=== PATIENT | male | born 1970 | race Hispanic/Latino ===

== ENCOUNTER 2017-01-03 06:59 | Emergency (ER) | payer OTHER ==
[2017-01-03 07:14] VITALS: BMI 34.9
--- NOTE | 2017-01-03 07:26 | ED PDOC ---
Arrival/HPI - General Time Seen by Provider: 01/03/17 07:21 Historian: Patient - History of Present Illness Narrative History of Present Illness (Text): 01/03/17 07:21 Atif Torres is a 46 year old male who presents to the emergency department complaining of rash to bilateral arms for a few days. Patient notes that he works in [employer]. Patient states that he has used calamine lotion and anti- itch spray to little relief. Patient denies any fevers, chills, urinary symptoms , or any other complaints at this time. Time/Duration: < week Symptom Onset: Gradual Symptom Course: Unchanged Severity Level: Moderate Activities at Onset: Light Context: Work Past Medical History - Provider Review Nursing Documentation Reviewed: Yes - Infectious Disease Hx of Infectious Diseases: None - Past Medical History Past Medical History: No Previous - Psychiatric Hx Depression: No Hx Emotional Abuse: No Hx Physical Abuse: No Hx Substance Use: No - Surgical History Hx Orthopedic Surgery: Yes (LEFT KNEE) - Anesthesia Hx Anesthesia: Yes Hx Anesthesia Reactions: No Hx Malignant Hyperthermia: No - Suicidal Assessment Feels Threatened In Home Enviroment: No Family/Social History - Physician Review Nursing Documentation Reviewed: Yes Family/Social History: No Known Family HX Smoking Status: Never Smoked Hx Alcohol Use: Yes Frequency of alcohol use: Socially Hx Substance Use: No Allergies/Home Meds Allergies/Adverse Reactions: Allergies No Known Allergies Allergy (Verified 03/08/13 18:59) Review of Systems - Physician Review All systems were reviewed & negative as marked: Yes - Review of Systems Constitutional: absent: Fevers, Night Sweats Eyes: absent: Vision Changes ENT: absent: Hearing Changes Respiratory: absent: SOB, Cough Cardiovascular: absent: Chest Pain Gastrointestinal: absent: Abdominal Pain Genitourinary Male: absent: Dysuria Musculoskeletal: absent: Arthralgias Skin: Rash Neurological: absent: Headache, Dizziness Endocrine: absent: Diaphoresis, Polyuria Hemo/Lymphatic: absent: Adenopathy, Easy Bleeding Psychiatric: absent: Anxiety Physical Exam - Physical Exam Narrative Physical Exam (Text): Constitutional: No acute distress. Head: Normocephalic. Atraumatic. Eyes: PERRL. ENT: Moist mucous membranes. Neck: Supple. Cardiovascular: Regular rate. Chest: No tenderness. Respiratory: Clear to auscultation bilaterally. GI: Soft. Nontender. Nondistended. Back: No CVA tenderness. Musculoskeletal: No tenderness or swelling of extremities. Skin: Erythematous vesicular patches with small blisters to bilateral arms. No streaks of erythema. No discharge of pus. Neurologic: Alert, no focal deficit. Vital Signs Temp Pulse Resp BP Pulse Ox 01/03/17 06:59 97.8 F 65 16 120/85 96 Medical Decision Making ED Course and Treatment: 01/03/17 07:21 Impression: 46 year old male complaining of rashes to bilateral arms for a few days. Differential Diagnosis included but are not limited to: Contact Dermatitis Plan: -- Discharge Prior Visits: Notes and results from previous visits were reviewed. Patient last seen in the ED on 03/08/13 for insect bites to lower legs. Patient was discharged home. Progress Notes: - Scribe Statement The provider has reviewed the documentation as recorded by the Svetlana Saini Provider Scribe Attestation: All medical record entries made by the Itaibbrandon were at my direction and personally dictated by me. I have reviewed the chart and agree that the record accurately reflects my personal performance of the history, physical exam, medical decision making, and the department course for this patient. I have also personally directed, reviewed, and agree with the discharge instructions and disposition. Disposition/Present on Arrival - Present on Arrival Any Indicators Present on Arrival: No History of DVT/PE: No History of Uncontrolled Diabetes: No Urinary Catheter: No History of Decub. Ulcer: No History Surgical Site Infection Following: None - Disposition Have Diagnosis and Disposition been Completed?: Yes Diagnosis: Allergic contact dermatitis Disposition: HOME/ ROUTINE Disposition Time: 08:00 Patient Plan: Discharge Condition: STABLE Discharge Instructions (ExitCare): Contact Dermatitis (ED), Poison Barb (ED) Prescriptions: predniSONE [predniSONE Tab] 60 mg PO DAILY #29 tab Referrals: PCP,NO [Primary Care Provider] - Follow up with primary
[2017-01-03 07:41] VITALS: BP 120/85; PULSE 65; RESP 16; TEMP 97.8; O2SAT 96
== END 2017-01-03 08:00 | disposition home or self-care (01) ==
LOC: ED 06:59
DX: L23.9 Allergic contact dermatitis, unspecified cause (principal)

== ENCOUNTER 2017-02-25 06:48 | Emergency (ER) | payer OTHER ==
[2017-02-25 06:49] VITALS: BMI 34.9
[2017-02-25 07:20] VITALS: RESP 18; TEMP 97.7
--- NOTE | 2017-02-25 07:40 | ED PDOC ---
Arrival/HPI - General Chief Complaint: Abnormal Skin Integrity Time Seen by Provider: 02/25/17 07:07 Historian: Patient - History of Present Illness Narrative History of Present Illness (Text): 02/25/17 07:28 Atif Torres is a 47 year old male who presents to the emergency department complaining of worsening rash to bilateral arms for about 2 weeks. Patient states that he was carrying burlap bags at work when he developed an itch that worsened these past 2 weeks, especially over the weekend. Patient states that he used Peroxide and Bacitracin to clean the rash which brought some relief. Patient notes that he experiences some draining from his rash when changing his arm wraps. Patient states that he had a poison primo rash 2 months ago to his arms and chest area which resolved completely. Patient denies any fevers, chills , or any other complaints at this time. Time/Duration: < month Symptom Onset: Gradual Symptom Course: Worsening Activities at Onset: Light Context: Work Past Medical History - Provider Review Nursing Documentation Reviewed: Yes - Infectious Disease Hx of Infectious Diseases: None - Past Medical History Past Medical History: No Previous - Psychiatric Hx Depression: No Hx Emotional Abuse: No Hx Physical Abuse: No Hx Substance Use: No - Surgical History Hx Orthopedic Surgery: Yes (LEFT KNEE) - Anesthesia Hx Anesthesia: Yes Hx Anesthesia Reactions: No Hx Malignant Hyperthermia: No - Suicidal Assessment Feels Threatened In Home Enviroment: No Family/Social History - Physician Review Nursing Documentation Reviewed: Yes Family/Social History: No Known Family HX Smoking Status: Never Smoked Hx Alcohol Use: Yes Hx Substance Use: No Allergies/Home Meds Allergies/Adverse Reactions: Allergies No Known Allergies Allergy (Verified 03/08/13 18:59) Review of Systems - Physician Review All systems were reviewed & negative as marked: Yes - Review of Systems Constitutional: absent: Fevers, Night Sweats Eyes: absent: Vision Changes ENT: absent: Hearing Changes Respiratory: absent: SOB, Cough Cardiovascular: absent: Chest Pain Gastrointestinal: absent: Abdominal Pain Genitourinary Male: absent: Dysuria, Frequency Musculoskeletal: absent: Arthralgias, Back Pain Skin: Rash (to bilateral upper arms) Physical Exam - Physical Exam Narrative Physical Exam (Text): Head: Atraumatic. Normocephalic. Eyes: PERRL. EOMI. Conjunctivae are not pale. ENT: Mucous membranes are moist and intact. Oropharynx is clear and symmetric. Neck: Supple. Full ROM. No JVD. No lymphadenopathy. Cardiovascular: Regular rate. Regular rhythm. No murmurs, rubs, or gallops. Distal pulses are 2+ and symmetric. Pulmonary/Chest: No evidence of respiratory distress. Clear to auscultation bilaterally. No wheezing, rales or rhonchi. Abdominal: Soft and non-distended. There is no tenderness. No rebound, guarding, or rigidity. No organomegaly. Good bowel sounds. Back: No CVA tenderness. Extremities: No edema. No cyanosis. No clubbing. Full range of motion in all extremities. No calf tenderness. Skin: Skin is warm and dry. No petechiae. No purpura. Neurological: Alert, awake, and oriented to person, place, time, and situation. Normal speech. Psychiatric: Good eye contact. Normal interaction, affect, and behavior. Vital Signs Reviewed: Yes Vital Signs Temp Pulse Resp BP Pulse Ox 02/25/17 07:14 97.7 F 86 18 136/82 97 Temperature: Afebrile Blood Pressure: Normal Pulse: Regular Respiratory Rate: Normal Appearance: Positive for: Well-Appearing, Non-Toxic, Comfortable Pain Distress: None Mental Status: Positive for: Alert and Oriented X 3 Medical Decision Making ED Course and Treatment: 02/25/17 07:28 Impression: 47 year old male complaining of worsening rash to bilateral arms for 2 weeks Differential Diagnosis included but are not limited to: Contact Dermatitis vs. Cellulitis Plan: -- Bacitracin -- Discharge Prior Visits: Notes and results from previous visits were reviewed. Patient last seen in the ED on 01/03/17 for rash to bilateral arms for a few days. Patient was discharged home. Progress Notes: - Scribe Statement The provider has reviewed the documentation as recorded by the Svetlana Saini Provider Scribe Attestation: All medical record entries made by the Svetlana were at my direction and personally dictated by me. I have reviewed the chart and agree that the record accurately reflects my personal performance of the history, physical exam, medical decision making, and the department course for this patient. I have also personally directed, reviewed, and agree with the discharge instructions and disposition. Disposition/Present on Arrival - Present on Arrival History of DVT/PE: No History of Uncontrolled Diabetes: No Urinary Catheter: No History of Decub. Ulcer: No History Surgical Site Infection Following: None - Disposition Diagnosis: Dermatitis, Cellulitis Disposition: HOME/ ROUTINE Patient Problems: Current Active Problems Problem Status Onset Cellulitis Acute Dermatitis Acute Discharge Instructions (ExitCare): Cellulitis (ED), Dermatitis (ED) Additional Instructions: Avoid heavy lifting or direct pressure to affected areas. Use bacitracin ointment as directed. Take antibiotic as directed. For any blisters, any bleeding, any pus, any drainage, any swelling, any increase in redness, any fevers or chills, any persistent or worsening of symptoms, get rechecked. Have rash rechecked in 1-2 days. Please contact your doctor or call one of the physicians/clinics you have been referred to that are listed on the Patient Visit Information form that is included in your discharge packet. Bring any paperwork you were given at discharge with you along with any medications you are taking to your follow up visit. Our treatment cannot replace ongoing medical care by a primary care provider (PCP) outside of the emergency department. Thank you for allowing the [facility] team to be part of your care today. Prescriptions: Bacitracin Ointment [Bacitracin] 30 gm TOP DAILY #1 tube Cephalexin [cephalexin] 500 mg PO QID #28 cap Referrals: [facility] [Outside] - Follow up with primary [facility] [place] [facility] [place] - Follow up with primary Amarilys Monge MD [Staff Provider] - Follow up with primary Forms: [employer] (Togolese)
[2017-02-25 08:23] VITALS: BP 126/90; PULSE 76; O2SAT 96
== END 2017-02-25 08:18 | disposition home or self-care (01) ==
LOC: ED 06:48
DX: L30.9 Dermatitis, unspecified (principal); L03.114 Cellulitis of left upper limb; L03.113 Cellulitis of right upper limb

== ENCOUNTER 2017-03-02 18:58 | Emergency (ER) | payer OTHER ==
[2017-03-02 18:58] VITALS: BMI 34.9
[2017-03-02 19:03] VITALS: BP 132/90; PULSE 93; RESP 16; TEMP 97.6; O2SAT 99
--- NOTE | 2017-03-02 19:41 | ED PDOC ---
Arrival/HPI - General Chief Complaint: Abnormal Skin Integrity Time Seen by Provider: 03/02/17 19:13 Historian: Patient - History of Present Illness Narrative History of Present Illness (Text): 03/02/17 20:08 A 47 year old male, who denies any significant past medical history, presents to the emergency department for a diffuse erythematous rash, which began about two months ago after coming into contact with poison primo. The patient reports when he first came across the poison primo rash, the rash was located in the R forearm, he was treated with steroids, which alleviated his symptoms, but later on his symptoms returned. The patient states he was recently treated at [facility] for the rash to his forearm and began antibiotic treatment 5 days ago. The patient then developed a diffuse erythematous rash, which he states is not itchy or painful, he does admit to scratching the rash. He denies any fever, chills, sores in mouth, chest pain, troubled breathing, nausea, vomiting, or any other complaints at this time. Time/Duration: > month (x 2 months ago ) Symptom Onset: Sudden Symptom Course: Unchanged Activities at Onset: Other (poison primo ) Context: Other (came into contact with poison primo ) Past Medical History - Provider Review Nursing Documentation Reviewed: Yes - Infectious Disease Hx of Infectious Diseases: None - Past Medical History Past Medical History: No Previous - Psychiatric Hx Depression: No Hx Emotional Abuse: No Hx Physical Abuse: No Hx Substance Use: No - Surgical History Hx Orthopedic Surgery: Yes (LEFT KNEE) - Anesthesia Hx Anesthesia: Yes Hx Anesthesia Reactions: No Hx Malignant Hyperthermia: No - Suicidal Assessment Feels Threatened In Home Enviroment: No Family/Social History - Physician Review Nursing Documentation Reviewed: Yes Family/Social History: Unknown Family HX Smoking Status: Never Smoked Hx Alcohol Use: Yes Hx Substance Use: No Allergies/Home Meds Allergies/Adverse Reactions: Allergies No Known Allergies Allergy (Verified 03/02/17 19:04) Review of Systems - Physician Review All systems were reviewed & negative as marked: Yes - Review of Systems Constitutional: absent: Fevers, Other (chills ) Respiratory: absent: SOB Cardiovascular: absent: Chest Pain Gastrointestinal: absent: Nausea, Vomiting Skin: Rash (diffuse erythematous rash) Physical Exam Vital Signs Reviewed: Yes Vital Signs Temp Pulse Resp BP Pulse Ox 03/02/17 19:48 97.6 F 93 H 16 132/90 99 03/02/17 18:59 97.6 F 93 H 16 132/90 99 Temperature: Afebrile Blood Pressure: Normal Pulse: Tachycardic Respiratory Rate: Normal Appearance: Positive for: Well-Appearing, Non-Toxic, Comfortable Pain Distress: None Mental Status: Positive for: Alert and Oriented X 3 - Systems Exam Head: Present: Atraumatic, Normocephalic Pupils: Present: PERRL Extroacular Muscles: Present: EOMI Conjunctiva: Present: Normal Mouth: Present: Moist Mucous Membranes Neck: Present: Normal Range of Motion Respiratory/Chest: Present: Clear to Auscultation, Good Air Exchange. No: Respiratory Distress, Accessory Muscle Use Cardiovascular: Present: Regular Rate and Rhythm, Normal S1, S2. No: Murmurs Abdomen: Present: Normal Bowel Sounds. No: Tenderness, Distention, Peritoneal Signs Back: Present: Normal Inspection Upper Extremity: Present: Normal Inspection. No: Cyanosis, Edema Lower Extremity: Present: Normal Inspection. No: Edema Neurological: Present: GCS=15, CN II-XII Intact, Speech Normal Skin: Present: Warm, Dry, Rashes (large area of erythema to medial aspect of right forearm, same for the posterior aspect of both knees; diffuse erythematous nodular and papular rash everywhere sparing the palms, soles, and face; the skin is dry and peeling.) Psychiatric: Present: Alert, Oriented x 3, Normal Insight, Normal Concentration Medical Decision Making ED Course and Treatment: 03/02/17 20:17 Impression: A 47 year old male with a diffuse erythematous rash. Differential Diagnosis included but are not limited to: contact dermatitis vs allergic reaction, consider eczema Plan: -- Benadryl, Pepcid, Prednisone -- Reassess and disposition Progress Notes: Patient notified of likely diagnosis of allergic reaction. Advised to d/c kemaureen , for potential drug allergy. Otherwise instructed to follow up with cupola tender in 1-2 days without fail for further evaluation. Advised to take medication as prescribed. Return to the emergency room at any time for any new or worsening symptoms. Patient states he fully agrees with and understands discharge instructions. States that he agrees with the plan and disposition. Verbalized and repeated discharge instructions and plan. I have given the patient opportunity to ask any additional questions. - Medication Orders Current Medication Orders: Discontinued Medications Diphenhydramine HCl (Benadryl) 50 mg PO STAT STA Stop: 03/02/17 20:09 Last Admin: 03/02/17 20:20 Dose: 50 mg Famotidine (Pepcid) 40 mg PO STAT STA Stop: 03/02/17 20:09 Last Admin: 03/02/17 20:20 Dose: 40 mg Prednisone (Prednisone Tab) 60 mg PO STAT STA Stop: 03/02/17 20:09 Last Admin: 03/02/17 20:20 Dose: 60 mg - PA / CIVIL RIGHTS INVESTIGATOR / Resident Statement MD/DO has reviewed & agrees with the documentation as recorded. - Scribe Statement The provider has reviewed the documentation as recorded by the Svetlana Rouse Provider Scribe Attestation: All medical record entries made by the Scribe were at my direction and personally dictated by me. I have reviewed the chart and agree that the record accurately reflects my personal performance of the history, physical exam, medical decision making, and the department course for this patient. I have also personally directed, reviewed, and agree with the discharge instructions and disposition. Disposition/Present on Arrival - Present on Arrival Any Indicators Present on Arrival: No History of DVT/PE: No History of Uncontrolled Diabetes: No Urinary Catheter: No History of Decub. Ulcer: No History Surgical Site Infection Following: None - Disposition Have Diagnosis and Disposition been Completed?: Yes Diagnosis: Rash, Allergic reaction Disposition: HOME/ ROUTINE Disposition Time: 19:45 Patient Plan: Discharge Condition: STABLE Discharge Instructions (ExitCare): Acute Rash (ED), General Allergic Reaction ( ED) Print Language: NIGERIEN Additional Instructions: Thank you for letting us take care of you today. You were treated for rash, allergic reaction. The emergency medical care you received today was directed at your acute symptoms. If you were prescribed any medication, please fill it and take as directed. It may take several days for your symptoms to resolve. Return to the Emergency Department if your symptoms worsen, do not improve, or if you have any other problems. Please contact your doctor in 2 days for re-evaluation and follow up / or call one of the physicians/clinics you have been referred to that are listed on the Patient Visit Information form that is included in your discharge packet. Bring any paperwork you were given at discharge with you along with any medications you are taking to your follow up visit. Our treatment cannot replace ongoing medical care by a primary care provider (PCP) outside of the emergency department. Thank you for allowing the [facility] team to be part of your care today. Prescriptions: Cetirizine HCl [Zyrtec] 10 mg PO DAILY #30 capsule Famotidine [Pepcid] 40 mg PO DAILY #20 tablet Methylprednisolone [Medrol Dose Pack (21 tabs)] 4 mg PO DAILY #21 mg Referrals: Shelby Pugh, [Primary Care Provider] - Follow up with primary Amarilys Monge MD [Staff Provider] - Follow up with primary Forms: [employer] (Emirati), WORK NOTE
== END 2017-03-02 20:30 | disposition home or self-care (01) ==
LOC: ED 18:58
DX: R21 Rash and other nonspecific skin eruption (principal)

== ENCOUNTER 2018-03-21 08:14 | Emergency (ER) | payer OTHER ==
[2018-03-21 08:14] VITALS: BMI 34.9
[2018-03-21] MEDS ORDERED: DiphenhydrAMINE 50 mg/ml Inj IVP ONE (08:59)
--- NOTE | 2018-03-21 09:08 | ED PDOC ---
Arrival/HPI - General Chief Complaint: Abnormal Skin Integrity Time Seen by Provider: 03/21/18 08:25 Historian: Patient - History of Present Illness Narrative History of Present Illness (Text): 03/21/18 09:02 A 48 year old male, who denies any past medical history, presents to the emergency department for further evaluation of a facial rash. He reports that 3 days ago, a pallet strap sprung loose and hit the right sided on his face 3 days ago. He states that he was seen at [facility] and they prescribed him Clindamycin. He notes that he developed an erythematous, swelling over his face which goes posterior to the neck, more on the right side. It appears to be something allergic. He states that he is experiencing itchiness. The patient denies drug use or alcohol use Admits to occasional smoking. The patient denies fevers, ch ills, headache, dizziness, visual disturbance, eye involvement, sore throat, cough, chest pain, no dysphasia or dyspnea, shortness of breath, abdominal pain, nausea, vomiting, diarrhea, neck/back pain, urinary/bowel changes or any other complaint. Time/Duration: Other (3 Days) Symptom Onset: Sudden Symptom Course: Unchanged Activities at Onset: Rest, Light Context: Home Associated Symptoms (Text): 03/21/18 09:54 Hit with a pallet strap at work 3 days ago. He was seen at another hospital emergency department and prescribed clindamycin. He's developed an itchy erythematous raised swollen red rash. This does not appear to be related to the pallet strap. Appears to be allergic. No dyspnea or dysphagia. The rash has spread across his entire face including his forehead chin cheeks and into his neck bilaterally and posteriorly. Past Medical History - Provider Review Nursing Documentation Reviewed: Yes - Infectious Disease Hx of Infectious Diseases: None - Past Medical History Past Medical History: No Previous - Psychiatric Hx Depression: No Hx Emotional Abuse: No Hx Physical Abuse: No Hx Substance Use: No - Surgical History Hx Orthopedic Surgery: Yes (LEFT KNEE) - Anesthesia Hx Anesthesia: Yes Hx Anesthesia Reactions: No Hx Malignant Hyperthermia: No - Suicidal Assessment Feels Threatened In Home Enviroment: No Family/Social History - Physician Review Nursing Documentation Reviewed: Yes Family/Social History: No Known Family HX Smoking Status: Never Smoked Hx Alcohol Use: Yes Frequency of alcohol use: Socially Hx Substance Use: No Allergies/Home Meds Allergies/Adverse Reactions: Allergies No Known Allergies Allergy (Verified 03/21/18 08:31) Home Medications: Home Meds Medication Instructions Recorded Confirmed Clindamycin [Cleocin] 300 mg PO Q6 03/21/18 03/21/18 Review of Systems - Physician Review All systems were reviewed & negative as marked: Yes - Review of Systems Constitutional: absent: Fevers Eyes: absent: Vision Changes ENT: absent: Sore Throat Respiratory: absent: SOB, Cough Cardiovascular: absent: Chest Pain, CANO Gastrointestinal: absent: Abdominal Pain, Stool Changes, Diarrhea, Nausea, Vomiting Musculoskeletal: absent: Back Pain, Neck Pain Skin: Rash (Erythema and swelling over face and neck, right more than left.) Neurological: absent: Headache, Dizziness Physical Exam Vital Signs Reviewed: Yes Vital Signs Temp Pulse Resp BP Pulse Ox 03/21/18 08:23 98.1 F 82 18 129/89 97 Temperature: Afebrile Blood Pressure: Normal Pulse: Regular Respiratory Rate: Normal Appearance: Positive for: Well-Appearing, Non-Toxic, Uncomfortable Pain Distress: None Mental Status: Positive for: Alert and Oriented X 3 - Systems Exam Head: Present: Atraumatic, Normocephalic Pupils: Present: PERRL Extroacular Muscles: Present: EOMI Conjunctiva: Present: Normal Mouth: Present: Moist Mucous Membranes Pharnyx: No: ERYTHEMA, EXUDATE, TONSILS ENLARGED, Peritonsilar Swelling, Uvular Deviation, Muffled/Hoarse Voice, Strider, Soft Palate/Uvular Edema Neck: Present: Normal Range of Motion Respiratory/Chest: Present: Clear to Auscultation, Good Air Exchange. No: Respiratory Distress, Accessory Muscle Use Cardiovascular: Present: Regular Rate and Rhythm, Normal S1, S2. No: Murmurs Abdomen: No: Tenderness, Distention, Peritoneal Signs Back: Present: Normal Inspection Upper Extremity: Present: Normal Inspection. No: Cyanosis, Edema Lower Extremity: Present: Normal Inspection. No: Edema Neurological: Present: GCS=15, CN II-XII Intact, Speech Normal Skin: Present: Warm, Dry, Rashes (Skin raised, urticarial, erythematous rash over face, right side worse than left, extending to the neck, scalp, and both ears.) Psychiatric: Present: Alert, Oriented x 3, Normal Insight, Normal Concentration Medical Decision Making ED Course and Treatment: 03/21/18 09:12 Impression: A 48 year old male presents to the emergency department with a complaint of a rash that developed over his face, neck, and ears. Plan: -- Labs -- Benadryl and SOLU- Medrol -- Reassess and disposition Prior Visits: Notes and results from previous visits were reviewed. Progress Notes: 03/21/18 09:14 03/21/18 09:58 CBC is normal. This appears to be an allergic reaction as opposed to an infectious process. Patient will be treated with steroids and antihistamines. Instructed to follow-up with PMD. Follow up in ER as needed. - Lab Interpretations I have reviewed the lab results: Yes - Medication Orders Current Medication Orders: Diphenhydramine HCl (Benadryl) 50 mg IVP ONCE ONE Stop: 03/21/18 09:00 Methylprednisolone (Solu-Medrol) 125 mg IVP ONCE ONE Stop: 03/21/18 09:00 - Scribe Statement The provider has reviewed the documentation as recorded by the Svetlana Jordan Provider Scribe Attestation: All medical record entries made by the Scribe were at my direction and personally dictated by me. I have reviewed the chart and agree that the record accurately reflects my personal performance of the history, physical exam, medical decision making, and the department course for this patient. I have also personally directed, reviewed, and agree with the discharge instructions and disposition. Disposition/Present on Arrival - Present on Arrival Any Indicators Present on Arrival: No History of DVT/PE: No History of Uncontrolled Diabetes: No Urinary Catheter: No History of Decub. Ulcer: No History Surgical Site Infection Following: None - Disposition Have Diagnosis and Disposition been Completed?: Yes Diagnosis: Allergic reaction, Urticaria Disposition: HOME/ ROUTINE Disposition Time: 09:59 Patient Plan: Discharge Condition: GOOD Discharge Instructions (ExitCare): Hives (DC), Drug Allergy Additional Instructions: Ice. Benadryl [id number] as directed on bottle. Follow-up with PMD. Follow up in ER as needed. Prescriptions: predniSONE [predniSONE Tab] 20 mg PO DAILY #10 tab Forms: [employer] (Kinyarwanda), WORK NOTE
[2018-03-21 09:51] LABS: BASO # 0.02 K/mm3 (0.0-2.0); BASO % 0.3 % (0.0-3.0); EOS # 0.6 (0.0-0.7); EOS % 7.7 % (1.5-5.0); GRAN # 3.46 (1.4-6.5); GRAN % 43.9 % (50.0-68.0); MEAN CELL VOLUME 89.6 fl (80.0-105.0); MEAN CORPUSCULAR HEMOGLOBIN 31.2 pg (25.0-35.0); MEAN CORPUSCULAR HGB CONC 34.8 g/dl (31.0-37.0); MEAN PLATELET VOLUME 11.5 fl (7.0-11.0); MONO # 0.8 (0.1-0.6); MONO % 10.1 % (1.0-6.0); RBC 4.81 10^6/uL (3.5-6.1); RED CELL DISTRIBUTION WIDTH 12.9 % (11.5-14.5); WHITE BLOOD COUNT 7.9 10^3/ul (4.5-11.0)
[2018-03-21 10:02] VITALS: O2SAT 98
[2018-03-21 10:15] VITALS: BP 125/53; PULSE 72; RESP 19; TEMP 98.3
== END 2018-03-21 10:06 | disposition home or self-care (01) ==
LOC: ED 08:14
DX: L50.0 Allergic urticaria (principal)
CPT/HCPCS: 85025; 96374; 96375; 99284; J1200; J2930

== ENCOUNTER 2018-03-23 06:23 | Inpatient (IN) | payer OTHER ==
[2018-03-23 07:00] VITALS: BMI 36.6
[2018-03-23] MEDS ORDERED: Vancomycin 1gm in NS 250ml 1 GM/250 ML BAG IVPB STA (07:33)
[2018-03-23] MEDS ORDERED: Piperacillin/Tazobact 3.375 gm 100 ML IVPB STA (07:33)
[2018-03-23] MEDS ORDERED: Sodium Chloride 0.9% 1,000 ML IV STA (07:34)
--- NOTE | 2018-03-23 08:25 | ED PDOC ---
Arrival/HPI - General Chief Complaint: Allergic Reaction Time Seen by Provider: 03/23/18 07:18 Historian: Patient - History of Present Illness Narrative History of Present Illness (Text): 03/23/18 07:33 48 year old male, with no significant past medical history, presents to the Emergency department for evaluation of worsening generalized redness and rash to his neck since yesterday. As per patient, symptoms emerged 5 days ago, when a pallet strap sprung loose and hit the right side of his face. Patient noted erythematous swelling following the incident and was prescribed Clindamycin at [facility] with no improvement to symptoms. Patient reports presenting to [facility] with the mentioned presentations on 03/21/18 and received steroids for possible allergic reaction, without any improvement to symptoms. Patient observed worsening re dness and swelling associated with sweating last night prompting him to present to the Emergency department today for evaluation. Patient reports applying baby powder to alleviate the associated mild burning sensation but denies any other medications. Patient denies any allergies to food or medication and denies any significant changes to diet or clothing. Patient denies any other somatic complaints. Patient denies any fevers, chills, headache, dizziness, visual changes, sore throat, cough, chest pain, shortness of breath, abdominal pain, nausea, vomiting, diarrhea, neck/back pain, urinary/bowel changes or any other complaints. Time/Duration: < week Symptom Onset: Gradual Symptom Course: Unchanged Quality: Burning Activities at Onset: Light Context: Home Past Medical History - Provider Review Nursing Documentation Reviewed: Yes - Infectious Disease Hx of Infectious Diseases: None - Past Medical History Past Medical History: No Previous - Psychiatric Hx Depression: No Hx Emotional Abuse: No Hx Physical Abuse: No Hx Substance Use: No - Surgical History Hx Orthopedic Surgery: Yes (LEFT KNEE) - Anesthesia Hx Anesthesia: Yes Hx Anesthesia Reactions: No Hx Malignant Hyperthermia: No - Suicidal Assessment Feels Threatened In Home Enviroment: No Family/Social History - Physician Review Nursing Documentation Reviewed: Yes Family/Social History: No Known Family HX Smoking Status: Never Smoked Hx Alcohol Use: Yes Hx Substance Use: No Allergies/Home Meds Allergies/Adverse Reactions: Allergies No Known Allergies Allergy (Verified 03/23/18 11:28) Review of Systems - Physician Review All systems were reviewed & negative as marked: Yes - Review of Systems Constitutional: absent: Fevers Respiratory: absent: SOB, Cough Cardiovascular: absent: Chest Pain Gastrointestinal: absent: Abdominal Pain, Diarrhea, Nausea, Vomiting Genitourinary Male: absent: Hematuria, Urinary Output Changes Musculoskeletal: absent: Back Pain, Neck Pain Skin: Rash (generalized rash to neck) Neurological: absent: Headache, Dizziness Physical Exam Vital Signs Reviewed: Yes Vital Signs Temp Pulse Resp BP Pulse Ox 03/23/18 08:17 78 18 138/67 99 03/23/18 07:03 98.2 F 77 16 146/91 H 100 Temperature: Afebrile Blood Pressure: Normal Pulse: Regular Respiratory Rate: Normal Appearance: Positive for: Well-Appearing, Non-Toxic, Comfortable Pain Distress: None Mental Status: Positive for: Alert and Oriented X 3 - Systems Exam Head: Present: Atraumatic, Normocephalic Pupils: Present: PERRL Extroacular Muscles: Present: EOMI Conjunctiva: Present: Normal Mouth: Present: Moist Mucous Membranes Neck: Present: Normal Range of Motion, Other (diffused erythematous rash) Respiratory/Chest: Present: Clear to Auscultation, Good Air Exchange. No: Respiratory Distress, Accessory Muscle Use Cardiovascular: Present: Regular Rate and Rhythm, Normal S1, S2. No: Murmurs Abdomen: No: Tenderness, Distention, Peritoneal Signs Back: Present: Normal Inspection Upper Extremity: Present: Normal Inspection. No: Cyanosis, Edema Lower Extremity: Present: Normal Inspection. No: Edema Neurological: Present: GCS=15, CN II-XII Intact, Speech Normal Skin: Present: Warm, Dry, Rashes (diffused erythematous rash to neck), Normal Color Psychiatric: Present: Alert, Oriented x 3, Normal Insight, Normal Concentration Medical Decision Making ED Course and Treatment: 03/23/18 07:33 Impression: 48 year old male presents to the Emergency department complaining of diffused rash to his neck. Plan: -- Labs -- IV fluids -- Vancomycin -- Zosyn -- Blood Culture -- Reassess and disposition Prior Visits: Notes and results from previous visits were reviewed. Progress Notes: 03/23/18 08:[address] Parkinson, who is aware and agrees with Emergency department management plan, accepts patient admission to [facility] under her service. 03/25/18 17:38 failur eof outpt tx, - Medication Orders Current Medication Orders: Vancomycin HCl (Vancomycin 1gm) 1 gm in 250 mls @ 167 mls/hr IVPB STAT STA; Protocol Stop: 03/23/18 09:02 Sodium Chloride (Sodium Chloride 0.9%) 1,000 mls @ 999 mls/hr IV .Q1H1M STA Stop: 03/23/18 08:34 Last Admin: 03/23/18 08:05 Dose: 999 mls/hr eMAR Start Stop Document 03/23/18 08:05 LUCIAEsther (Rec: 03/23/18 08:05 MARTÍNEZ [id number]) Intravenous Solution Start Date 03/23/18 Start Time 08:00 End Date 03/23/18 End time 09:00 Total Infusion Time 60 Discontinued Medications Piperacillin Sod/Tazobactam Sod (Zosyn 3.375 In Ns 100ml) 100 mls @ 200 mls/hr IVPB STAT STA; Protocol Stop: 03/23/18 08:02 Last Admin: 03/23/18 08:06 Dose: 200 mls/hr eMAR Start Stop Document 03/23/18 08:06 MARTÍNEZ (Rec: 03/23/18 08:06 MARTÍNEZ [id number]) Intravenous Solution Start Date 03/23/18 Start Time 08:06 End Date 03/23/18 End time 08:36 Total Infusion Time 30 - Scribe Statement The provider has reviewed the documentation as recorded by the Scribe Cristobal Cortes. All medical record entries made by the Scribe were at my direction and personally dictated by me. I have reviewed the chart and agree that the record accurately reflects my personal performance of the history, physical exam, [facility] decision making, and the department course for this patient. I have also personally directed, reviewed, and agree with the discharge instructions and disposition. Disposition/Present on Arrival - Present on Arrival Any Indicators Present on Arrival: No History of DVT/PE: No History of Uncontrolled Diabetes: No Urinary Catheter: No History of Decub. Ulcer: No History Surgical Site Infection Following: None - Disposition Have Diagnosis and Disposition been Completed?: Yes Diagnosis: Dermatitis, Cellulitis Disposition: HOSPITALIZED Disposition Time: 10:00 Condition: IMPROVED
[2018-03-23 08:26] LABS: BASO # 0.04 K/mm3 (0.0-2.0); BASO % 0.3 % (0.0-3.0); EOS # 0.9 (0.0-0.7); EOS % 7.1 % (1.5-5.0); GRAN # 7.37 (1.4-6.5); GRAN % 56.7 % (50.0-68.0); HEMOGLOBIN 14.6 g/dL (14.0-18.0); LYMPH # 3.4 (1.2-3.4); MEAN CELL VOLUME 90.9 fl (80.0-105.0); MEAN CORPUSCULAR HEMOGLOBIN 30.7 pg (25.0-35.0); MEAN CORPUSCULAR HGB CONC 33.8 g/dl (31.0-37.0); MEAN PLATELET VOLUME 11.1 fl (7.0-11.0); MONO # 1.3 (0.1-0.6); MONO % 9.9 % (1.0-6.0); RBC 4.75 10^6/uL (3.5-6.1)
[2018-03-23 08:35] LABS: ALB/GLOB RATIO 1.3 (1.1-1.8); ALBUMIN 3.9 g/dL (3.0-4.8); ALT/SGPT 39 U/L (7-56); AST/SGOT 28 U/L (17-59); BLOOD UREA NITROGEN 14 mg/dL (7-21); CALCIUM 8.7 mg/dL (8.4-10.5); GFR NON-AFRICAN AMERICAN > 60
[2018-03-23 08:42] LABS: INR 0.9; PROTHROMBIN TIME 10.3 SECONDS (9.4-12.5)
[2018-03-23 08:46] LABS: PARTIAL THROMBOPLASTIN TIME 25.3 Seconds (25.1-36.5)
[2018-03-23] MEDS: Vancomycin 1gm in NS 250ml 1 GM/250 ML BAG IVPB SCH ×2 (11:16→21:09)
[2018-03-23] MEDS: Enoxaparin 40 mg Syringe SC SCH (11:17)
[2018-03-23] MEDS: Piperacillin/Tazobact 3.375 gm 100 ML IVPB SCH ×3 (11:17→23:34)
[2018-03-23] MEDS ORDERED: Influenza Vaccine 60 mcg/0.5 mL SYR (4YR UP) IM ONE (12:47)
[2018-03-23] MEDS ORDERED: Pneumococcal 23-Valent Vaccine IM ONE (12:47)
[2018-03-23] MEDS: MethylPREDNISolone 40 mg Vial IVP SCH ×2 (13:55→21:08)
--- NOTE | 2018-03-23 14:13 | CP.PCM.HP ---
<Marcin Peraza - Last Filed: 03/24/18 02:54> History of Present Illness - History of Present Illness History of Present Illness: Internal Medicine History and Physical (Hospitalist Service): Adelia PGY2 CC: Facial Cellulitis HPI: Mr. Torres is a 48 year old male with no significant past medical history who presented with facial and neck rash. Patient reports that one week ago while at work he was struck by a loose strap on the right side of his face. Afterwards, he was seen at [facility] where he was discharged from the ED with a 10 day course of Clindamycin. However, after taking this medication he noticed that his entire neck and upper chest were becoming increasingly red with periodic intense itching. The patient was seen in [place] [facility] [place] for what he believed to be an allergic reaction to Clindamycin and was discharged with a ten day course of prednisone. Patient continued to take his Clindamycin along with the prednisone but noted no improvement of his symptoms and decided that he needed to be evaluated further. He denies ever experiencing pain with either of his rashes. Patient denies ever having this in the past. He further denies any sick contacts, recent travel, fevers, chills, headache, changes in his vision, eye discharge/pain, rhinorrhea, sore throat, neck pain/stiffness, chest pain, palpitations, SOB, cough, wheezing, abdominal pain, N/V/D/C, changes in urine output, or any numbness/tingling/weakness of any extremity. 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 Allergies: NKDA Home Medications: Denies PMD: None Present on Admission - Present on Admission Any Indicators Present on Admission: No Past Patient History - Infectious Disease Hx of Infectious Diseases: None - Past Social History Smoking Status: Current Some Days Smoker - CARDIAC Hx Cardiac Disorders: No - PULMONARY Hx Respiratory Disorders: Yes (SMOKES CIGARETTES) - NEUROLOGICAL Hx Neurological Disorder: No - HEENT Hx HEENT Problems: No - RENAL Hx Chronic Kidney Disease: No - ENDOCRINE/METABOLIC Hx Endocrine Disorders: No - HEMATOLOGICAL/ONCOLOGICAL Hx Blood Disorders: No - INTEGUMENTARY Hx Dermatological Problems: Yes (REDDENED RASH TO RIGHT SIDE OF FACE.- CELLULITIS,RASH TO BACK OF KNEE ALSO) - MUSCULOSKELETAL/RHEUMATOLOGICAL Hx Falls: Yes - GASTROINTESTINAL Hx Gastrointestinal Disorders: No - GENITOURINARY/GYNECOLOGICAL Hx Genitourinary Disorders: No - PSYCHIATRIC Hx Substance Use: No - SURGICAL HISTORY Hx Surgeries: Yes Hx Orthopedic Surgery: Yes (LEFT KNEE) - ANESTHESIA Hx Anesthesia: Yes Hx Anesthesia Reactions: No Hx Malignant Hyperthermia: No Meds Allergies/Adverse Reactions: Allergies Allergy/AdvReac Type Severity Reaction Status Date / Time No Known Allergies Allergy Verified 03/23/18 11:28 Physical Exam - Constitutional Appears: Non-toxic, No Acute Distress - Neck Exam Neck exam: Positive for: Full Rom. Negative for: Lymphadenopathy, Meningismus, Tenderness, Thyromegaly - Respiratory Exam Respiratory Exam: Clear to Auscultation Bilateral, NORMAL BREATHING PATTERN. absent: Accessory Muscle Use, Chest Wall Tenderness, Decreased Breath Sounds, Prolonged Expiratory Phase, Rales, Rhonchi, Wheezes, Respiratory Distress, Stridor - Cardiovascular Exam Cardiovascular Exam: REGULAR RHYTHM, RRR, +S1, +S2. absent: Bradycardia, Tachycardia, Clicks, Diastolic murmur, Gallop, Irregular Rhythm, JVD, Rubs, +S4, Systolic Murmur - GI/Abdominal Exam GI & Abdominal Exam: Normal Bowel Sounds, Soft. absent: Tenderness - Extremities Exam Extremities exam: Negative for: calf tenderness - Neurological Exam Neurological exam: Alert, Oriented x3 - Psychiatric Exam Psychiatric exam: Normal Affect, Normal Mood Results - Vital Signs Recent Vital Signs: Last Vital Signs Temp 98.2 F 03/23/18 07:03 Pulse 80 03/23/18 10:00 Resp 18 03/23/18 12:48 BP 130/80 03/23/18 10:00 Pulse Ox 99 03/23/18 10:00 - Labs Result Diagrams: 03/23/18 08:00 03/23/18 08:00 Labs: Laboratory Results - last 24 hr 03/23/18 03/23/18 03/23/18 08:00 08:00 08:00 WBC 13.0 H D RBC 4.75 Hgb 14.6 Hct 43.2 MCV 90.9 MCH 30.7 MCHC 33.8 RDW 13.0 Plt Count 248 MPV 11.1 H Gran % 56.7 Lymph % (Auto) 26.0 King % (Auto) 9.9 H Eos % (Auto) 7.1 H Baso % (Auto) 0.3 Gran # 7.37 H Lymph # (Auto) 3.4 King # (Auto) 1.3 H Eos # (Auto) 0.9 H Baso # (Auto) 0.04 PT 10.3 INR 0.90 APTT 25.3 Sodium 138 Potassium 4.0 Chloride 102 Carbon Dioxide 28 Anion Gap 12 BUN 14 Creatinine 0.7 L Est GFR ( Amer) > 60 Est GFR (Non-Af Amer) > 60 Random Glucose 126 H Calcium 8.7 Total Bilirubin 0.6 AST 28 ALT 39 Alkaline Phosphatase 54 Total Protein 6.8 Albumin 3.9 Globulin 2.9 Albumin/Globulin Ratio 1.3 Assessment & Plan - Assessment and Plan (Free Text) Assessment: 48 year old male with no significant past medical history who presented with facial and neck rash. Patient reports that one week ago while at work he was struck by a loose strap on the right side of his face. Patient is currently admitted and being treated for failed outpatient antibiotic treatment of facial cellulitis. Plan: 1. Facial Cellulitis -CT Soft Tissue Neck and CT Maxillofacial showing findings consistent with facial cellulitis without drainable abscess -Blood cultures pending -IV Vancomycin and IV Zosyn for empiric coverage -IV Solu-Medrol 40mg IVPB Q8 -Tylenol PRN for fevers -Benadryl PRN for itching -ID consulted, all recommendations appreciated 2. Essential Hypertension -Lisinopril 5mg PO daily GI Prophylaxis: Protonix DVT Prophylaxis: Lovenox Diet: Regular Patient seen and case discussed with attending, Dr. Parkinson. - Date & Time Date: 03/23/18 Time: 14:13 Decision To Admit - Pt Status Changed To: Hospital Disposition Of: Observation - . Bed Request Type: Med/Surg <Maco Parkinson - Last Filed: 03/25/18 18:52> Results - Vital Signs Recent Vital Signs: Last Vital Signs Temp 98 F 03/25/18 07:39 Pulse 72 03/25/18 10:14 Resp 20 03/25/18 07:39 BP 125/82 03/25/18 10:14 Pulse Ox 94 L 03/25/18 07:39 - Labs Result Diagrams: 03/25/18 06:30 03/25/18 06:30 Labs: Laboratory Results - last 24 hr 03/24/18 03/25/18 03/25/18 05:00 06:30 06:30 WBC 15.2 H RBC 4.65 Hgb 14.5 Hct 41.7 L MCV 89.7 MCH 31.2 MCHC 34.8 RDW 12.8 Plt Count 297 MPV 10.8 Gran % 71.4 H Lymph % (Auto) 20.6 L King % (Auto) 8.0 H Eos % (Auto) 0.0 L Baso % (Auto) 0.0 Gran # 10.81 H Lymph # (Auto) 3.1 King # (Auto) 1.2 H Eos # (Auto) 0.0 Baso # (Auto) 0.00 Sodium 136 Potassium 4.3 Chloride 101 Carbon Dioxide 27 Anion Gap 12 BUN 17 Creatinine 0.7 L Est GFR ( Amer) > 60 Est GFR (Non-Af Amer) > 60 Random Glucose 152 H Calcium 8.7 Phosphorus 4.3 Magnesium 2.3 H Total Bilirubin 0.8 AST 25 ALT 44 Alkaline Phosphatase 55 Total Protein 6.8 Albumin 3.9 Globulin 2.8 Albumin/Globulin Ratio 1.4 HIV 1&2 Ag/Ab, 4th Gen Nonreactive Attending/Attestation - Attestation I have personally seen and examined this patient.: Yes I have fully participated in the care of the patient.: Yes I have reviewed all pertinent clinical information: Yes Notes (Text): 03/25/18 18:52 attending note; Patient seen and examined with resident. Patient is a 48 year old male with no past medical history who presented with facial and neck rash. Patient reports that one week ago while at work he was struck by a loose strap on the right side of his face. Patient was prescribed PO clindamycin, but then developed a bright red pruritic rash. Currently patient has redness on the right side of the face and the neck area. CT of the face and neck showed periorbital cellulitis but no drainable colection. Patient is started on IV vancomycin and Zosyn. ID evaluation requested. Continue IV Steroids for allergic reaction. Possible contact dermatitis. Monitor for clinical response closely. Upon discharge patient will [place] [facility] [place]
[2018-03-23] MEDS ORDERED: EnalaprilAT 1.25 mg/ml Inj IVP PRN (14:16)
--- NOTE | 2018-03-23 15:27 | CP.PCM.CON ---
History of Present Illness - History of Present Illness History of Present Illness: 48 year old male with PMH of left knee surgery came in to [facility] complaining of worsening erythema and pain around his anterior neck, which then spread to his right side of his face. It started about 4-5 days ago. He denies insect bites, d enies animal contacts, denies using any new chemical/soap, denies fever or chills, no nausea or vomiting, no chest pain, no SOB, no headache or dizziness, no abdominal pain, no diarrhea, no dysuria, no chest pain, no cough or rhinorrhea. He states that he was at [facility] a few days ago and was given Cli ndamycin and steroids without relief. He denies eye pain, no blurring of vision, no problems with moving his eyes, no pain in his mouth, no sore throat. Infectious Diseases consult is requested to further evaluate and manage. Review of Systems - Review of Systems All systems: reviewed and no additional remarkable complaints except (as per HPI) Past Patient History - Infectious Disease Hx of Infectious Diseases: None - Past Social History Smoking Status: Never Smoked - PSYCHIATRIC Hx Depression: No Hx Emotional Abuse: No Hx Physical Abuse: No Hx Substance Use: No - SURGICAL HISTORY Hx Orthopedic Surgery: Yes (LEFT KNEE) - ANESTHESIA Hx Anesthesia: Yes Hx Anesthesia Reactions: No Hx Malignant Hyperthermia: No Meds Allergies/Adverse Reactions: Allergies Allergy/AdvReac Type Severity Reaction Status Date / Time No Known Allergies Allergy Verified 03/23/18 11:28 - Medications Medications: Current Medications Acetaminophen (Tylenol 325mg Tab) 650 mg PO Q6H PRN PRN Reason: Fever >100.4 F Diphenhydramine HCl (Benadryl) 25 mg PO Q6 PRN PRN Reason: Itching / Pruritus Enoxaparin Sodium (Lovenox) 40 mg SC DAILY FLAKO; Protocol Vancomycin HCl (Vancomycin 1gm) 1 gm in 250 mls @ 167 mls/hr IVPB Q12H FLAKO; Protocol Piperacillin Sod/Tazobactam Sod (Zosyn 3.375 In Ns 100ml) 100 mls @ 200 mls/hr IVPB Q6 FLAKO; Protocol Stop: 03/23/18 18:29 Pantoprazole Sodium (Protonix Ec Tab) 40 mg PO 0600 FLAKO Physical Exam - Constitutional Appears: Chronically Ill - Head Exam Head Exam: NORMAL INSPECTION - ENT Exam Additional comments: right side of face and anterior neck with erythema, no open wounds, no swelling of periorbital area; poor dentition - Neck Exam Neck exam: Negative for: Meningismus - Respiratory Exam Respiratory Exam: Decreased Breath Sounds - Cardiovascular Exam Cardiovascular Exam: +S1, +S2 - GI/Abdominal Exam GI & Abdominal Exam: Soft. absent: Tenderness Results - Vital Signs Recent Vital Signs: Last Vital Signs Temp 98.2 F 03/23/18 07:03 Pulse 78 03/23/18 08:17 Resp 18 03/23/18 08:17 BP 138/67 03/23/18 08:17 Pulse Ox 99 03/23/18 08:17 - Labs Result Diagrams: 03/23/18 08:00 03/23/18 08:00 Labs: Laboratory Results - last 24 hr 03/23/18 03/23/18 03/23/18 08:00 08:00 08:00 WBC 13.0 H D RBC 4.75 Hgb 14.6 Hct 43.2 MCV 90.9 MCH 30.7 MCHC 33.8 RDW 13.0 Plt Count 248 MPV 11.1 H Gran % 56.7 Lymph % (Auto) 26.0 [place] % (Auto) 9.9 H Eos % (Auto) 7.1 H Baso % (Auto) 0.3 Gran # 7.37 H Lymph # (Auto) 3.4 [place] # (Auto) 1.3 H Eos # (Auto) 0.9 H Baso # (Auto) 0.04 PT 10.3 INR 0.90 APTT 25.3 Sodium 138 Potassium 4.0 Chloride 102 Carbon Dioxide 28 Anion Gap 12 BUN 14 Creatinine 0.7 L Est GFR ( Amer) > 60 Est GFR (Non-Af Amer) > 60 Random Glucose 126 H Calcium 8.7 Total Bilirubin 0.6 AST 28 ALT 39 Alkaline Phosphatase 54 Total Protein 6.8 Albumin 3.9 Globulin 2.9 Albumin/Globulin Ratio 1.3 Assessment & Plan - Assessment and Plan (Free Text) Plan: Assessment Neck and right facial rash, consider dermatitis, R/O cellulitis left knee surgery obesity with BMI 37 Plan Started Vancomycin and Zosyn pending blood cx, CT neck and maxillofacial area will check HIV test will monitor clinical response
--- NOTE | 2018-03-23 18:15 | CT ---
Date of service: 03/23/2018 PROCEDURE: CT NECK WITH CONTRAST HISTORY: Rule out cellulitis/abscess COMPARISON: None available. TECHNIQUE: CT of the neck with intravenous contrast. Coronal and sagittal reformats generated. Intravenous contrast dose: Radiation dose: DLP 437.93 mGy-cm This CT exam was performed using one or more of the following dose reduction techniques: Automated exposure control, adjustment of the mA and/or kV according to patient size, and/or use of iterative reconstruction technique. FINDINGS: NASOPHARYNX: Unremarkable. SUPRAHYOID NECK: Unremarkable oropharynx, oral cavity, parapharyngeal space and retropharyngeal space. INFRAHYOID NECK: Unremarkable larynx, hypopharynx, and supraglottic space. Vocal cords intact. MASS: No masses. No drainable subcutaneous fluid collections are identified. GLANDS: Parotid and submandibular glands unremarkable. Normal size thyroid gland, without nodule. LYMPH NODES: Multiple small nonspecific bilateral cervical lymph nodes are present. None of these lymph nodes appear pathologically enlarged CERVICAL SPINE: No fracture or focal lesion. VASCULAR STRUCTURES: Unremarkable. OTHER FINDINGS: There appears to be some very minor periorbital and right lateral periorbital, right pre maxillary infiltration changes and minimal overlying skin thickening. Findings may represent mild cellulitis. There also appears to be some minimal skin thickening right aspect of the neck. No drainable fluid or abscess collections are identified. IMPRESSION: There is mild right periorbital and right lateral as well as minor right pre maxillary infiltration changes suggesting a mild nonspecific cellulitis. No drainable fluid-abscess collection seen. There also minimal overlying skin thickening of the right facial soft tissues and right aspect of the neck
--- NOTE | 2018-03-23 18:18 | CT ---
Date of service: 03/23/2018 PROCEDURE: CT MAXILLOFACIAL BONES WITH CONTRAST HISTORY: Rule out cellulitis/abscess COMPARISON: Correlation made with concurrent CT scan neck TECHNIQUE: Contiguous axial CT images of the maxillofacial bones were obtained following administration of IV contrast. Coronal and sagittal reformats were generated. Intravenous contrast Dose: Infiltration changes right pre maxillary soft tissues as well. There is very slight Radiation dose: Total exam DLP = 874.40 mGy-cm. This CT exam was performed using one or more of the following dose reduction techniques: Automated exposure control, adjustment of the mA and/or kV according to patient size, and/or use of iterative reconstruction technique. FINDINGS: NASAL BONES: Unremarkable. ORBITS: There appears to be mild right periorbital and right lateral periorbital soft tissues. PARANASAL SINUSES/ MASTOIDS: The paranasal sinuses are well-developed. No fluid levels seen to suggest acute sinusitis. No significant mucoperiosteal inflammatory changes. There appears to be a chronic fracture deformity left lamina papyracea. MAXILLA: The maxilla intact.. There appears to be some minimal right periorbital and right lateral periorbital soft tissue swelling/infiltration extends inferiorly into the right pre maxillary soft tissues. Minimal overlying right facial skin thickening felt to be present well. Findings may represent cellulitis. No drainable fluid or abscess collections are identified. No evidence of postseptal orbital cellulitis. MANDIBLE/ TEMPOROMANDIBULAR JOINTS: Left TMJ incompletely visualized. Mandible appears intact. SKULL BASE: Unremarkable. TEMPORAL BONES: The mastoid air complexes incompletely visualized left middle ear canal also incompletely visualized. Visualized portions of the middle ear canals appear unremarkable. OTHER FINDINGS: Left frontal encephalomalacia changes are present likely posttraumatic in origin. IMPRESSION: Findings suggest mild right periorbital and right lateral periorbital cellulitis. Minor infiltration changes of the pre maxillary soft tissues with minimal overlying skin thickening. Findings may represent cellulitis. No evidence of drainable fluid or abscess collections are identified.. No evidence of postseptal orbital cellulitis. See above discussion for additional details and findings.
[2018-03-24] MEDS: MethylPREDNISolone 40 mg Vial IVP SCH ×3 (05:28→22:35)
[2018-03-24] MEDS: Pantoprazole 40 mg EC Tab PO SCH (05:28)
[2018-03-24] MEDS: Piperacillin/Tazobact 3.375 gm 100 ML IVPB SCH ×3 (05:28→17:32)
[2018-03-24 07:58] LABS: BASO # 0.01 K/mm3 (0.0-2.0); BASO % 0.1 % (0.0-3.0); GRAN # 10.7 (1.4-6.5); GRAN % 77.1 % (50.0-68.0); HEMOGLOBIN 14.7 g/dL (14.0-18.0); LYMPH # 2.5 (1.2-3.4); MEAN CELL VOLUME 89.9 fl (80.0-105.0); MEAN CORPUSCULAR HEMOGLOBIN 30.9 pg (25.0-35.0); MEAN CORPUSCULAR HGB CONC 34.4 g/dl (31.0-37.0); MONO # 0.7 (0.1-0.6); MONO % 4.8 % (1.0-6.0); RBC 4.75 10^6/uL (3.5-6.1); RED CELL DISTRIBUTION WIDTH 12.8 % (11.5-14.5); WHITE BLOOD COUNT 13.9 10^3/ul (4.5-11.0)
[2018-03-24 08:02] LABS: ALB/GLOB RATIO 1.3 (1.1-1.8); ALBUMIN 4.1 g/dL (3.0-4.8); ALT/SGPT 40 U/L (7-56); AST/SGOT 27 U/L (17-59); BLOOD UREA NITROGEN 15 mg/dL (7-21); CALCIUM 8.9 mg/dL (8.4-10.5); GFR NON-AFRICAN AMERICAN > 60
[2018-03-24 08:43] VITALS: RESP 20
[2018-03-24] MEDS: Vancomycin 1gm in NS 250ml 1 GM/250 ML BAG IVPB SCH ×2 (10:22→21:21)
[2018-03-24] MEDS: Enoxaparin 40 mg Syringe SC SCH (10:22)
--- NOTE | 2018-03-24 13:45 | CP.PCM.PN ---
<Susan Elmore - Last Filed: 03/24/18 13:40> Subjective - Date & Time of Evaluation Date of Evaluation: 03/24/18 Time of Evaluation: 07:20 - Subjective Subjective: PGY-1 Susan Elmore D.O. Medicine progress note for Dr. Parkinson's service: Patient was seen and examined this morning. Patient's rash is drying/crusting. He states that he is no longer itching. The pain has decreased. He is eating and sleeping well. Denies any acute complaints. Objective - Vital Signs/Intake and Output Vital Signs (last 24 hours): Temp Pulse Resp BP Pulse Ox 98.3 F 74 20 129/80 97 03/24/18 08:42 03/24/18 10:23 03/24/18 08:42 03/24/18 10:23 03/24/18 08:42 Intake and Output: 03/24/18 03/24/18 06:59 18:59 Intake Total 1520 240 Balance 1520 240 - Medications Medications: Current Medications Acetaminophen (Tylenol 325mg Tab) 650 mg PO Q6H PRN PRN Reason: pain or fever >100.4 Diphenhydramine HCl (Benadryl) 25 mg PO Q6 PRN PRN Reason: Itching / Pruritus Enoxaparin Sodium (Lovenox) 40 mg SC DAILY FLAKO; Protocol Last Admin: 03/24/18 10:22 Dose: 40 mg Vancomycin HCl (Vancomycin 1gm) 1 gm in 250 mls @ 167 mls/hr IVPB Q12H FLAKO; Protocol Last Admin: 03/24/18 10:22 Dose: 167 mls/hr Piperacillin Sod/Tazobactam Sod (Zosyn 3.375 In Ns 100ml) 100 mls @ 200 mls/hr IVPB Q6 FLAKO; Protocol Stop: 03/30/18 12:01 Last Admin: 03/24/18 12:03 Dose: 200 mls/hr Lisinopril (Zestril) 5 mg PO DAILY FLAKO Last Admin: 03/24/18 10:23 Dose: 5 mg Methylprednisolone (Solu-Medrol) 40 mg IVP Q8H FLAKO Last Admin: 03/24/18 12:03 Dose: 40 mg Pantoprazole Sodium (Protonix Ec Tab) 40 mg PO 0600 FLAKO Last Admin: 03/24/18 05:28 Dose: 40 mg - Labs Labs: 03/24/18 07:20 03/24/18 07:20 PT 10.3 SECONDS (9.4-12.5) 03/23/18 08:00 INR 0.90 03/23/18 08:00 APTT 25.3 Seconds (25.1-36.5) 03/23/18 08:00 - Constitutional Appears: Non-toxic, No Acute Distress - Head Exam Head Exam: ATRAUMATIC, NORMAL INSPECTION - Eye Exam Eye Exam: EOMI, Normal appearance, PERRL - ENT Exam ENT Exam: Mucous Membranes Moist, Normal Exam - Neck Exam Additional comments: entire neck erythematous, xerotic, hyperkeratotic extends superiorly onto R cheek no excoriations, discharge, or bleeding - Respiratory Exam Respiratory Exam: Clear to Ausculation Bilateral, NORMAL BREATHING PATTERN - Cardiovascular Exam Cardiovascular Exam: REGULAR RHYTHM, +S1, +S2 - GI/Abdominal Exam GI & Abdominal Exam: Soft, Normal Bowel Sounds. absent: Tenderness - Rectal Exam Rectal Exam: Deferred - Extremities Exam Extremities Exam: Full ROM, Normal Inspection - Back Exam Back Exam: NORMAL INSPECTION - Neurological Exam Neurological Exam: Alert, Awake, CN II-XII Intact, Normal Gait, Oriented x3 Neuro motor strength exam: Left Upper Extremity: 5, Right Upper Extremity: 5, Left Lower Extremity: 5, Right Lower Extremity: 5 - Psychiatric Exam Psychiatric exam: Normal Affect, Normal Mood - Skin Skin Exam: Dry, Erythema (neck, R cheek), Normal Color, Warm. absent: Abrasion, Cyanosis, Pallor, Petechiae, Vesicles Assessment and Plan - Assessment and Plan (Free Text) Assessment: Patient is a 48 yo male with no past medical history who presented with facial and neck rash. Patient reports that one week ago while at work he was struck by a loose strap on the right side of his face. Patient was prescribe PO clindamycin, but then developed a bright red pruritic rash. Plan: Dermatitis- suspect 2/2 abx use superimposed on cellulitis - CT Soft Tissue Neck and CT Maxillofacial: findings consistent with facial cellulitis without drainable abscess - Blood Cx no growth >24 hrs - Leukocytosis stable (13.9) - Afebrile - Vancomycin 1 g IV Q12H - Zosyn 3.375 mg IV Q6H - Solu-medrol 30 mg IV Q8H - Bendadryl 25 mg PO Q6H PRN - Tylenol 650 mg PO Q6H PRN - ID consulted (Monalisa)- vanc and zosyn pending blood Cx, f/u HIV HTN - Lisinopril 5 mg PO daily IVF: not indicated Diet: regular GI ppx: Protonix 40 mg PO daily VTE ppx: Lovenox 40 mg SC daily Code status: full code Case discussed with attending, Dr. Parkinson. <Maco Parkinson - Last Filed: 03/25/18 18:15> Objective - Vital Signs/Intake and Output Vital Signs (last 24 hours): Temp Pulse Resp BP Pulse Ox 98 F 72 20 125/82 94 L 03/25/18 07:39 03/25/18 10:14 03/25/18 07:39 03/25/18 10:14 03/25/18 07:39 Intake and Output: 03/25/18 03/25/18 06:59 18:59 Intake Total 360 Balance 360 - Labs Labs: 03/25/18 06:30 03/25/18 06:30 PT 10.3 SECONDS (9.4-12.5) 03/23/18 08:00 INR 0.90 03/23/18 08:00 APTT 25.3 Seconds (25.1-36.5) 03/23/18 08:00 Attending/Attestation - Attestation I have personally seen and examined this patient.: Yes I have fully participated in the care of the patient.: Yes I have reviewed all pertinent clinical information, including history, physical exam and plan: Yes Notes (Text): 03/25/18 18:13 attending note; Patient seen and examined with resident. Patient is a 48 year old male with no past medical history who presented with facial and neck rash. Patient reports that one week ago while at work he was st ruck by a loose strap on the right side of his face. Patient was prescribed PO clindamycin, but then developed a bright red pruritic rash. Currently patient has redness on the right side of the face and the neck area. CT of the face and neck showed periorbital cellulitis but no drainable colection. Patient is started on IV vancomycin and Zosyn. ID evaluation appreciated. Continue IV Steroids for allergic reaction. Possible contact dermatitis. Monitor for clinical response closely. Upon discharge patient will follow-up with [facility].
[2018-03-24 22:49] VITALS: O2SAT 94
[2018-03-25] MEDS: Piperacillin/Tazobact 3.375 gm 100 ML IVPB SCH ×3 (00:16→13:12)
--- NOTE | 2018-03-25 01:14 | PN ---
DATE: 03/24/2018 SUBJECTIVE: Patient is in bed in no acute distress, nontoxic. PHYSICAL EXAMINATION: VITAL SIGNS: The patient's temperature is 98, blood pressure is 120/80, respiratory rate of 18. HEENT: Unremarkable. NECK: Supple. LUNGS: Have decreased breath sounds. HEART: Normal S1, S2. ABDOMEN: Soft. LABORATORY EXAMINATION: Reveals a white count of 13,900, hemoglobin of 14, platelets of 276. Chemistries reveal a BUN of 15, creatinine of 0.6. Blood cultures are no growth. CAT scan of the neck reveals mild periorbital and right premaxillary infiltration with nonspecific cellulitis. No drainable abscess. ASSESSMENT AND PLAN: This is a 48-year-old male who was seen earlier this morning in room 573, bed 1, who states he is doing much better overall, admitted with cellulitis of the neck and face, on vancomycin and Zosyn, improving with negative blood cultures, the patient is afebrile, leukocytosis. The patient is on Solu-Medrol, vancomycin and Zosyn. We will continue to follow with you. ENT consultation pending. Review of orders reveals the antibiotics are active. We will follow with you. Sebastian Babcock MD
[2018-03-25] MEDS: Pantoprazole 40 mg EC Tab PO SCH (05:07)
[2018-03-25] MEDS: MethylPREDNISolone 40 mg Vial IVP SCH ×2 (05:48→13:12)
[2018-03-25 07:11] LABS: GRAN # 10.81 (1.4-6.5); GRAN % 71.4 % (50.0-68.0); HEMOGLOBIN 14.5 g/dL (14.0-18.0); LYMPH # 3.1 (1.2-3.4); LYMPH % 20.6 % (22.0-35.0); MEAN CELL VOLUME 89.7 fl (80.0-105.0); MEAN CORPUSCULAR HEMOGLOBIN 31.2 pg (25.0-35.0); MEAN CORPUSCULAR HGB CONC 34.8 g/dl (31.0-37.0); MEAN PLATELET VOLUME 10.8 fl (7.0-11.0); MONO # 1.2 (0.1-0.6); RBC 4.65 10^6/uL (3.5-6.1); RED CELL DISTRIBUTION WIDTH 12.8 % (11.5-14.5); WHITE BLOOD COUNT 15.2 10^3/ul (4.5-11.0)
[2018-03-25 07:19] LABS: ALB/GLOB RATIO 1.4 (1.1-1.8); ALBUMIN 3.9 g/dL (3.0-4.8); ALT/SGPT 44 U/L (7-56); AST/SGOT 25 U/L (17-59); BLOOD UREA NITROGEN 17 mg/dL (7-21); CALCIUM 8.7 mg/dL (8.4-10.5); GFR NON-AFRICAN AMERICAN > 60
[2018-03-25 07:39] VITALS: TEMP 98
--- NOTE | 2018-03-25 08:47 | CP.PCM.DIS ---
<Susan Elmore - Last Filed: 03/25/18 14:23> Provider - Provider Date of Admission: 03/23/18 08:49 Attending physician: Maco Parkinson MD Primary care physician: [facility] Consults: ID Time Spent in preparation of Discharge (in minutes): 45 Diagnosis - Discharge Diagnosis (1) Dermatitis Status: Acute Priority: High (2) HTN (hypertension) Status: Chronic Priority: Medium Hospital Course - Lab Results Lab Results: Micro Results 03/23/18 08:00 Blood Blood Culture - Preliminary NO GROWTH AFTER 48 HOURS 03/23/18 08:00 Blood Blood Culture - Preliminary NO GROWTH AFTER 48 HOURS Most Recent Lab Values WBC 15.2 10^3/ul (4.5-11.0) H 03/25/18 06:30 RBC 4.65 10^6/uL (3.5-6.1) 03/25/18 06:30 Hgb 14.5 g/dL (14.0-18.0) 03/25/18 06:30 Hct 41.7 % (42.0-52.0) L 03/25/18 06:30 MCV 89.7 fl (80.0-105.0) 03/25/18 06:30 MCH 31.2 pg (25.0-35.0) 03/25/18 06:30 MCHC 34.8 g/dl (31.0-37.0) 03/25/18 06:30 RDW 12.8 % (11.5-14.5) 03/25/18 06:30 Plt Count 297 10^3/uL (120.0-450.0) 03/25/18 06:30 MPV 10.8 fl (7.0-11.0) 03/25/18 06:30 Gran % 71.4 % (50.0-68.0) H 03/25/18 06:30 Lymph % (Auto) 20.6 % (22.0-35.0) L 03/25/18 06:30 Falls % (Auto) 8.0 % (1.0-6.0) H 03/25/18 06:30 Eos % (Auto) 0.0 % (1.5-5.0) L 03/25/18 06:30 Baso % (Auto) 0.0 % (0.0-3.0) 03/25/18 06:30 Gran # 10.81 (1.4-6.5) H 03/25/18 06:30 Lymph # (Auto) 3.1 (1.2-3.4) 03/25/18 06:30 Falls # (Auto) 1.2 (0.1-0.6) H 03/25/18 06:30 Eos # (Auto) 0.0 (0.0-0.7) 03/25/18 06:30 Baso # (Auto) 0.00 K/mm3 (0.0-2.0) 03/25/18 06:30 PT 10.3 SECONDS (9.4-12.5) 03/23/18 08:00 INR 0.90 03/23/18 08:00 APTT 25.3 Seconds (25.1-36.5) 03/23/18 08:00 Sodium 136 mmol/L (132-148) 03/25/18 06:30 Potassium 4.3 mmol/L (3.6-5.0) 03/25/18 06:30 Chloride 101 mmol/L (98-107) 03/25/18 06:30 Carbon Dioxide 27 mmol/L (21-33) 03/25/18 06:30 Anion Gap 12 (10-20) 03/25/18 06:30 BUN 17 mg/dL (7-21) 03/25/18 06:30 Creatinine 0.7 mg/dl (0.8-1.5) L 03/25/18 06:30 Est GFR ( Amer) > 60 03/25/18 06:30 Est GFR (Non-Af Amer) > 60 03/25/18 06:30 Random Glucose 152 mg/dL (70-110) H 03/25/18 06:30 Calcium 8.7 mg/dL (8.4-10.5) 03/25/18 06:30 Phosphorus 4.3 mg/dL (2.5-4.5) 03/25/18 06:30 Magnesium 2.3 mg/dL (1.7-2.2) H 03/25/18 06:30 Total Bilirubin 0.8 mg/dL (0.2-1.3) 03/25/18 06:30 AST 25 U/L (17-59) 03/25/18 06:30 ALT 44 U/L (7-56) 03/25/18 06:30 Alkaline Phosphatase 55 U/L (38-126) 03/25/18 06:30 Total Protein 6.8 g/dL (5.8-8.3) 03/25/18 06:30 Albumin 3.9 g/dL (3.0-4.8) 03/25/18 06:30 Globulin 2.8 gm/dL 03/25/18 06:30 Albumin/Globulin Ratio 1.4 (1.1-1.8) 03/25/18 06:30 HIV 1&2 Ag/Ab, 4th Gen Nonreactive (Nonreactive) 03/24/18 05:00 - Hospital Course Hospital Course: Atif Torres is a 48 year old male with no significant past medical history who presented with facial and neck rash. Patient reports that one week ago while at work he was struck by a loose strap on the right side of his face. Afterwards, he was seen at [facility] where he was discharged from the ED with a 10 day course of Clindamycin. However, after taking this medication he noticed that his entire neck and upper chest were becoming increasingly red with periodic intense itching. The patient was seen in the [facility] ED for what he believed to be an allergic reaction to Clindamycin and was discharged with a ten day course of prednisone. Patient continued to take his Clindamycin along with the prednisone but noted no improvement of his symptoms and decided that he needed to be evaluated further. He denies ever experiencing pain with either of his rashes. Patient denies ever having this in the past. Patient was treated with IV steroids and abx, vancomycin and zosyn. ID was consulted. He was also given Benadryl as needed for pruritis. Patients rash on neck and R cheek began to dry up by day 2. The pain and itching subsided. Patient was found to have elevated BP during admission. He was started on lisinopril. Upon discharge, patients pain and pruritis resolved. The erythema of his neck and cheek was decreasing. He was eating and sleeping well. He denied any acute complaints. He was sent home on a Medrol dose pack and oral abx for 5 days. Discharge Exam - Head Exam Head Exam: ATRAUMATIC, NORMAL INSPECTION - Eye Exam Eye Exam: EOMI, Normal appearance, PERRL - ENT Exam ENT Exam: Mucous Membranes Moist, Normal Exam - Neck Exam Additional comments: erythematous, no lesions/excoriations- improved from prior exam - Respiratory Exam Respiratory Exam: Clear to PA & Lateral, NORMAL BREATHING PATTERN, UNREMARKABLE - Cardiovascular Exam Cardiovascular Exam: REGULAR RHYTHM, +S1, +S2 - GI/Abdominal Exam GI & Abdominal Exam: Normal Bowel Sounds, Soft, Unremarkable - Rectal Exam Rectal Exam: Deferred - Extremities Exam Extremities exam: normal capillary refill, normal inspection, pedal pulses present - Back Exam Back exam: NORMAL INSPECTION - Neurological Exam Neurological exam: Alert, CN II-XII Intact, Normal Gait, Oriented x3 - Psychiatric Exam Psychiatric exam: Normal Affect, Normal Mood - Skin Skin Exam: Dry (dry, peeling, crusting skin on R cheek- improved from previous exam), Erythema (neck), Intact Discharge Plan - Discharge Medications Prescriptions: Amoxicillin/Clavulanate [Augmentin 875 MG-125 MG] 1 tab PO BID 5 Days tab Doxycycline Hyclate [Doryx] 100 mg PO BID 5 Days cap Lisinopril [Zestril] 5 mg PO DAILY #30 tab Methylprednisolone [Medrol Dose Pack (21 tabs)] 4 mg PO DAILY #21 mg - Follow Up Plan Condition: IMPROVED Disposition: HOME/ ROUTINE Instructions: Pulmonary Hypertension in Adults, Heart Healthy Diet, Cellulitis (Skin Infection), Adult (DC), Pneumococcal Polysaccharide Vaccine (23-Valent), Flu Vaccine Additional Instructions: Please establish care at the [facility]. They will serve as your primary care provider. You have an appointment scheduled on April 02 at 3PM. ([phone]) You will be given a prescription for Lisinopril 5 mg for high blood pressure. Please take one pill daily. You will be given a prescription for a Medrol dose pack. Please take as instructed. You will be given a prescription for antibiotics for 3 days. Please take twice daily until completed. If symptoms return, please present to the nearest emergency room. Referrals: at [facility] [Outside] <Maco Parkinson - Last Filed: 03/25/18 18:19> Provider - Provider Date of Admission: 03/23/18 08:49 Attending physician: Maco Parkinson MD Primary care physician: [facility] Course - Lab Results Lab Results: Micro Results 03/23/18 08:00 Blood Blood Culture - Preliminary NO GROWTH AFTER 48 HOURS 03/23/18 08:00 Blood Blood Culture - Preliminary NO GROWTH AFTER 48 HOURS Most Recent Lab Values WBC 15.2 10^3/ul (4.5-11.0) H 03/25/18 06:30 RBC 4.65 10^6/uL (3.5-6.1) 03/25/18 06:30 Hgb 14.5 g/dL (14.0-18.0) 03/25/18 06:30 Hct 41.7 % (42.0-52.0) L 03/25/18 06:30 MCV 89.7 fl (80.0-105.0) 03/25/18 06:30 MCH 31.2 pg (25.0-35.0) 03/25/18 06:30 MCHC 34.8 g/dl (31.0-37.0) 03/25/18 06:30 RDW 12.8 % (11.5-14.5) 03/25/18 06:30 Plt Count 297 10^3/uL (120.0-450.0) 03/25/18 06:30 MPV 10.8 fl (7.0-11.0) 03/25/18 06:30 Gran % 71.4 % (50.0-68.0) H 03/25/18 06:30 Lymph % (Auto) 20.6 % (22.0-35.0) L 03/25/18 06:30 Falls % (Auto) 8.0 % (1.0-6.0) H 03/25/18 06:30 Eos % (Auto) 0.0 % (1.5-5.0) L 03/25/18 06:30 Baso % (Auto) 0.0 % (0.0-3.0) 03/25/18 06:30 Gran # 10.81 (1.4-6.5) H 03/25/18 06:30 Lymph # (Auto) 3.1 (1.2-3.4) 03/25/18 06:30 Falls # (Auto) 1.2 (0.1-0.6) H 03/25/18 06:30 Eos # (Auto) 0.0 (0.0-0.7) 03/25/18 06:30 Baso # (Auto) 0.00 K/mm3 (0.0-2.0) 03/25/18 06:30 PT 10.3 SECONDS (9.4-12.5) 03/23/18 08:00 INR 0.90 03/23/18 08:00 APTT 25.3 Seconds (25.1-36.5) 03/23/18 08:00 Sodium 136 mmol/L (132-148) 03/25/18 06:30 Potassium 4.3 mmol/L (3.6-5.0) 03/25/18 06:30 Chloride 101 mmol/L (98-107) 03/25/18 06:30 Carbon Dioxide 27 mmol/L (21-33) 03/25/18 06:30 Anion Gap 12 (10-20) 03/25/18 06:30 BUN 17 mg/dL (7-21) 03/25/18 06:30 Creatinine 0.7 mg/dl (0.8-1.5) L 03/25/18 06:30 Est GFR ( Amer) > 60 03/25/18 06:30 Est GFR (Non-Af Amer) > 60 03/25/18 06:30 Random Glucose 152 mg/dL (70-110) H 03/25/18 06:30 Calcium 8.7 mg/dL (8.4-10.5) 03/25/18 06:30 Phosphorus 4.3 mg/dL (2.5-4.5) 03/25/18 06:30 Magnesium 2.3 mg/dL (1.7-2.2) H 03/25/18 06:30 Total Bilirubin 0.8 mg/dL (0.2-1.3) 03/25/18 06:30 AST 25 U/L (17-59) 03/25/18 06:30 ALT 44 U/L (7-56) 03/25/18 06:30 Alkaline Phosphatase 55 U/L (38-126) 03/25/18 06:30 Total Protein 6.8 g/dL (5.8-8.3) 03/25/18 06:30 Albumin 3.9 g/dL (3.0-4.8) 03/25/18 06:30 Globulin 2.8 gm/dL 03/25/18 06:30 Albumin/Globulin Ratio 1.4 (1.1-1.8) 03/25/18 06:30 HIV 1&2 Ag/Ab, 4th Gen Nonreactive (Nonreactive) 03/24/18 05:00 Attending/Attestation - Attestation I have personally seen and examined this patient.: Yes I have fully participated in the care of the patient.: Yes I have reviewed all pertinent clinical information, including history, physical exam and plan: Yes Notes (Text): 03/25/18 18:15 attending note; Patient seen and examined with resident. Patient is a 48 year old male with no past medical history who presented with facial and neck rash. Patient reports that one week ago while at work he was struck by a loose strap on the right side of his face. Patient was prescribed PO clindamycin, but then developed a bright red pruritic rash. Currently patient has redness on the right side of the face and the neck area. CT of the face and neck showed periorbital cellulitis but no drainable collection. redness and swelling improved. denies any difficulty swallowing. Treated with IV vancomycin and Zosyn. ID evaluation appreciated. patient will be discharged home with Augmentin and doxycycline. Upon discharge patient will follow-up with [facility] clinic.
[2018-03-25] MEDS: Enoxaparin 40 mg Syringe SC SCH (10:09)
[2018-03-25] MEDS: Vancomycin 1gm in NS 250ml 1 GM/250 ML BAG IVPB SCH (10:10)
[2018-03-25 10:15] VITALS: BP 125/82; PULSE 72
--- NOTE | 2018-03-26 00:40 | PN ---
DATE: 03/25/2018 SUBJECTIVE: The patient is in bed, in no acute distress, nontoxic. No fevers. The patient was seen early this morning in room 573, bed 1. PHYSICAL EXAMINATION: VITAL SIGNS: On exam, temperature is 98, blood pressure is 125/80, respiratory rate of 20, heart rate of 80. HEENT: Examination of HEENT is unremarkable. NECK: Supple. LUNGS: Have decreased breath sounds. HEART: Normal S1, S2. ABDOMEN: Soft, nontender. LABORATORY DATA: Reveals the patient's white count of 15,200, hemoglobin of 14. Chemistries reveals BUN of 17, creatinine of 0.7. Serology is noted. HIV is negative. Blood cultures are no growth. ASSESSMENT AND PLAN: A 48-year-old male who was admitted, was seen early this morning, doing well. He was admitted with cellulitis of the neck and face, was on vancomycin and Zosyn, improving. Follow up with ENT and complete with p.o. antibiotics. Sebastian Babcock MD
== END 2018-03-25 15:53 | disposition home or self-care (01) | DRG 277 ==
LOC: ED 06:23 → ERH 08:49 → 5RSO 10:12
PROVIDERS: ADMIT Internal Medicine; ATTEND Internal Medicine
DX: L03.213 Periorbital cellulitis (principal); L03.221 Cellulitis of neck; L03.211 Cellulitis of face; L30.9 Dermatitis, unspecified; T36.8X5A Adverse effect of other systemic antibiotics, initial encounter; E66.9 Obesity, unspecified; Z68.37 Body mass index [BMI] 37.0-37.9, adult; I10 Essential (primary) hypertension; Z87.891 Personal history of nicotine dependence

== ENCOUNTER 2018-04-07 16:23 | Emergency (ER) | payer OTHER ==
[2018-04-07 16:23] VITALS: BMI 36.6
[2018-04-07 17:07] VITALS: RESP 18
[2018-04-07] MEDS ORDERED: DiphenhydrAMINE 50 mg/ml Inj IVP STA (17:42)
--- NOTE | 2018-04-07 18:34 | ED PDOC ---
Arrival/HPI - General Chief Complaint: Abnormal Skin Integrity Time Seen by Provider: 04/07/18 17:06 Historian: Patient - History of Present Illness Narrative History of Present Illness (Text): 04/07/18 18:30 48yo male with no significant pmhx who present with complaint of pruritic rash to his neck and chin area x 2days. Patient notes he had similar symptoms in the past. states he is not sure of what he is reacting to. He denies any new inciting factors, SOB, stridor, tongue swelling, chest pain, pain to area, fever, chills ,any other complaint. Past Medical History - Provider Review Nursing Documentation Reviewed: Yes - Infectious Disease Hx of Infectious Diseases: None - Past Medical History Past Medical History: No Previous - Cardiac Hx Cardiac Disorders: No - Pulmonary Hx Respiratory Disorders: Yes (SMOKES CIGARETTES) - Neurological Hx Neurological Disorder: No - HEENT Hx HEENT Disorder: No - Renal Hx Renal Disorder: No - Endocrine/Metabolic Hx Endocrine Disorders: No - Hematological/Oncological Hx Blood Disorders: No - Integumentary Hx Dermatological Disorder: Yes (REDDENED RASH TO RIGHT SIDE OF FACE.- CELLULITIS,RASH TO BACK OF KNEE ALSO) - Musculoskeletal/Rheumatological Hx Musculoskeletal Disorders: Yes Hx Falls: Yes - Gastrointestinal Hx Gastrointestinal Disorders: No - Genitourinary/Gynecological Hx Genitourinary Disorders: No - Psychiatric Hx Psychophysiologic Disorder: No Hx Substance Use: Yes (Marijuana) - Surgical History Hx Orthopedic Surgery: Yes (LEFT KNEE) - Anesthesia Hx Anesthesia: Yes Hx Anesthesia Reactions: No Hx Malignant Hyperthermia: No - Suicidal Assessment Feels Threatened In Home Enviroment: No Family/Social History - Physician Review Nursing Documentation Reviewed: Yes Family/Social History: Unknown Family HX Smoking Status: Never Smoked Hx Alcohol Use: Yes Frequency of alcohol use: Socially Hx Substance Use: Yes (Marijuana) Allergies/Home Meds Allergies/Adverse Reactions: Allergies No Known Allergies Allergy (Verified 04/07/18 17:05) Review of Systems - Physician Review All systems were reviewed & negative as marked: Yes - Review of Systems Constitutional: Normal Eyes: Normal ENT: Normal Respiratory: Normal Cardiovascular: Normal Gastrointestinal: Normal Genitourinary Male: Normal Musculoskeletal: Normal Skin: Rash, Pruritis Neurological: Normal Endocrine: Normal Hemo/Lymphatic: Normal Psychiatric: Normal Physical Exam Vital Signs Reviewed: Yes Vital Signs Temp Pulse Resp BP Pulse Ox 04/07/18 17:48 78 18 138/89 97 04/07/18 17:05 98.0 F 79 18 131/86 95 Temperature: Afebrile Blood Pressure: Normal Pulse: Regular Respiratory Rate: Normal Appearance: Positive for: Well-Appearing, Non-Toxic, Comfortable Pain Distress: None Mental Status: Positive for: Alert and Oriented X 3 - Systems Exam Head: Present: Atraumatic, Normocephalic Pupils: Present: PERRL Extroacular Muscles: Present: EOMI Conjunctiva: Present: Normal Mouth: Present: Moist Mucous Membranes Neck: Present: Normal Range of Motion, Other (Erythematous rash noted on anterior to lateral neck and right chin) Respiratory/Chest: Present: Clear to Auscultation, Good Air Exchange. No: Respiratory Distress, Accessory Muscle Use Cardiovascular: Present: Regular Rate and Rhythm, Normal S1, S2. No: Murmurs Abdomen: No: Tenderness, Distention, Peritoneal Signs Back: Present: Normal Inspection Upper Extremity: Present: Normal Inspection. No: Cyanosis, Edema Lower Extremity: Present: Normal Inspection. No: Edema Neurological: Present: GCS=15, CN II-XII Intact, Speech Normal Skin: Present: Warm, Dry, Normal Color. No: Rashes Psychiatric: Present: Alert, Oriented x 3, Normal Insight, Normal Concentration Medical Decision Making ED Course and Treatment: 04/07/18 19:47 Pt in ED for stated history. He was not in any distress. No stridor. No drooling. Lung was CTA b/l Pt have localized erythematous rash on his neck and right sided chin that appear likely like contact dermatitis. Pt was treated with Solu medrol, Pepcid, Benadryl and keflex in ED and was DC home with same medication. Pt was advised to f/u with a Show Jumping Instructor. 04/07/18 19:55 - Medication Orders Current Medication Orders: Discontinued Medications Cephalexin Monohydrate (Keflex) 500 mg PO STAT STA; Protocol Stop: 04/07/18 17:43 Last Admin: 04/07/18 18:29 Dose: 500 mg Diphenhydramine HCl (Benadryl) 25 mg IVP STAT STA Stop: 04/07/18 17:43 Last Admin: 04/07/18 18:30 Dose: 25 mg IVP Administration Document 04/07/18 18:30 [place] (Rec: 04/07/18 18:30 [facility]) Charges for Administration # of IVP Administrations 1 Famotidine (Pepcid) 20 mg IVP STAT STA Stop: 04/07/18 17:43 Last Admin: 04/07/18 18:29 Dose: 20 mg IVP Administration Document 04/07/18 18:29 [place] (Rec: 04/07/18 18:29 [facility]) Charges for Administration # of IVP Administrations 1 Methylprednisolone (Solu-Medrol) 125 mg IVP STAT STA Stop: 04/07/18 17:42 Last Admin: 04/07/18 18:30 Dose: 125 mg IVP Administration Document 04/07/18 18:30 [place] (Rec: 04/07/18 18:30 [facility]) Charges for Administration # of IVP Administrations 1 Disposition/Present on Arrival - Present on Arrival Any Indicators Present on Arrival: No History of DVT/PE: No History of Uncontrolled Diabetes: No Urinary Catheter: No History of Decub. Ulcer: No History Surgical Site Infection Following: None - Disposition Have Diagnosis and Disposition been Completed?: Yes Diagnosis: Dermatitis Disposition: HOME/ ROUTINE Disposition Time: 18:45 Patient Plan: Discharge Patient Problems: Current Active Problems Problem Status Onset Dermatitis Acute Condition: STABLE Discharge Instructions (ExitCare): Dermatitis Additional Instructions: Keep area dry follow up with a Show Jumping Instructor/clinic Return to ED for any worsening symptoms Prescriptions: Cephalexin [cephalexin] 500 mg PO TID #21 cap DiphenhydrAMINE [Benadryl] 25 mg PO Q6 #30 cap Famotidine [Pepcid] 20 mg PO DAILY #8 tab predniSONE [Prednisone] 20 mg PO BID #10 tab Referrals: Richard Zuñiga MD [Staff Provider] - Follow up with primary Debbi Salmon MD [Medical Doctor] - Follow up with primary Forms: [employer] ([place]jib[place])
[2018-04-07 19:35] VITALS: BP 134/73; PULSE 80; TEMP 98.2
[2018-04-08 00:33] VITALS: O2SAT 100
== END 2018-04-07 19:54 | disposition home or self-care (01) ==
LOC: ED 16:23
DX: L30.9 Dermatitis, unspecified (principal)
CPT/HCPCS: 96374; 96375; 99283; J1200; J2930